=== PATIENT | female | born 1985 | race Caucasian/White ===

== ENCOUNTER 2018-11-30 19:20 | Inpatient (IN) ==
[2018-11-30 20:34] LABS: HEMATOCRIT 36.8 % (37.0-47.0); IMM GRAN# 0.03 X1000 (0.0-0.04); IMM GRAN% 0.3 % (0.0-0.5); LYMPH# 0.43 X1000 (1.2-3.4); LYMPH% 4.4 % (20.5-51.1); MCHC 32.6 g/dL (33-37); MCV 85.8 FL (81-99); MONO# 0.73 X1000 (0.11-0.59); MONO% 7.4 % (1.7-9.3); MPV 11.4 FL (7.4-10.4); NEUT# 8.65 X1000 (1.4-6.5); NEUT% 87.9 % (42.2-75.2); PLT 97 X1000 (130-400); RBC 4.29 XMIL (4.2-5.4); RDW 14.6 % (11.5-14.5); WBC 9.84 X1000 (4.8-10.8)
[2018-11-30 20:52] LABS: AGAP 15; ALB/GLOB RATIO 1.1; ALBUMIN 3.5 g/dL (3.5-5.0); ALKALINE PHOSPHATASE 50 U/L (32-104); BUN 14 mg/dL (8-22); CALCIUM 8.4 mg/dL (8.8-10.2); CHLORIDE 97 mmol/L (98-107); COSMO 269; CREATININE 0.9 mg/dL (0.5-0.9); ESTIMATED GFR > 60; GLUCOSE 129 mg/dL (70-104); GOT 25 U/L (10-30); GPT 27 U/L (10-36); LIPASE 12 U/L (13-60); POTASSIUM 3.2 mmol/L (3.5-5.1); SODIUM 133 mmol/L (136-145); TCO2 21 mmol/L (25-35); TOTAL BILIRUBIN 0.55 mg/dL (0.20-1.00); TOTAL PROTEIN 6.6 g/dL (6.3-8.3)
[2018-11-30] MEDS ORDERED: NS 1,000 ML IV ONE (21:22)
[2018-11-30] MEDS ORDERED: MORPHINE IV ONE (21:22)
[2018-11-30] MEDS ORDERED: ZOFRAN IM ONE (21:23)
[2018-11-30] MEDS ORDERED: ZOFRAN LIQUID PO ONE (21:23)
[2018-11-30 21:41] LABS: URINE SOURCE CLEAN CATCH
[2018-11-30] MEDS ORDERED: ZOFRAN IV ONE (21:50)
[2018-11-30 21:53] LABS: BILIRUBIN URINE NEGATIVE (NEGATIVE); BLOOD URINE MODERATE (NEGATIVE); COLOR ORANGE; GLUCOSE URINE NEGATIVE (NEGATIVE); KETONE URINE NEGATIVE (NEGATIVE); LEUKOCYTES URINE LARGE (NEGATIVE); NITRITE URINE POSITIVE (NEGATIVE); PH URINE 5.5; PROTEIN URINE 100 mg/dL (NEGATIVE); TURBIDITY URINE TURBID (CLEAR); UROBILINOGEN URINE NORMAL (NORMAL)
[2018-11-30 22:00] LABS: UR EPITHELIAL CELLS <10 /HPF (<10); URINE BACTERIA 4+ /HPF; URINE RBC <10 /HPF (<10); URINE WBC TNTC /HPF (<10)
[2018-11-30 22:10] LABS: URINE CASTS NONE SEEN; URINE CRYSTALS NONE SEEN; URINE SMALL ROUND CELLS NONE SEEN; URINE YEAST NONE SEEN
[2018-11-30] MEDS ORDERED: KLOR-CON POWDER PACKET PO ONE (22:24)
[2018-11-30] MEDS ORDERED: MAG-OX PO ONE (22:24)
--- NOTE | 2018-11-30 22:27 | Diag Imaging Result Doc PS360 ---
EXAM: CT ABD/PELVIS W/IV CONT ONLY HISTORY: RLQ POINT TENDERNESS AND ALSO RUQ PAIN; THANKS. TECHNIQUE: CT abdomen and pelvis with intravenous contrast COMPARISON: None. FINDINGS: There is fatty infiltration of the liver. No calcified gallstones or adjacent inflammation. Normal spleen, pancreas, and adrenal glands. Normal left kidney. No left-sided hydronephrosis. Irregular enhancement throughout the right kidney. Slight distention to the right ureter, but no stones. Normal aorta. Normal appendix. No abscess. No bowel obstruction. No ascites. The urinary bladder is moderately distended and is normal. Normal uterus and ovaries. No free fluid in the pelvis. IMPRESSION: Right-sided pyelonephritis. This exam was performed using automated exposure control, adjustment of mA or kV according to patient size, and/or use of iterative reconstruction technique. Electronically signed by Kp Kruse 11/30/2018 10:24 PM
[2018-11-30] MEDS ORDERED: LEVAQUIN 750 MG/D5W 750 MG/150 ML IVPB IV ONE (22:45)
[2018-11-30] MEDS ORDERED: TYLENOL PO ONE (22:54)
--- NOTE | 2018-11-30 22:58 | PROVIDER DOCUMENTATION ---
This chart was entered by Malia Bynum Scribe, acting as scribe for Amanda Joshi MD. HPI-Abdominal Pain/GI Problem - General Chief Complaint: Abdominal Pain Stated Complaint: (R) SIDE PAIN, FEELS WEAK Time Seen by Provider: 11/30/18 21:08 Source: patient Allergies/Adverse Reactions: Patient Allergies Allergy/AdvReac Type Severity Reaction Status Date / Time cefaclor [From Ceclor] Allergy HIVES Verified 11/30/18 21:26 ceftriaxone [From Rocephin] Allergy SWELLING Verified 11/30/18 21:26 Penicillins Allergy ANAPHYLAXIS Verified 11/30/18 21:26 Home Medications: Home Medication List Medication Instructions Recorded Confirmed Last Taken Type Ibuprofen 4 tab PO PRN PRN 11/30/18 11/30/18 11/30/18 History - History of Present Illness-ABD Nature of Presenting Problems: 32 yof presents w/co 3 days abd pain on right side. pt denies nvd, chills and dysuria. Abdominal Pain Onset Location: reports: RUQ, RLQ Pain Radiation: reports: no radiation Severity in ED: reports: mild Review of Systems - Adult - REVIEW OF SYSTEMS - ADULT Constitutional: reports: fever (pt temp in er is 101.4). denies: chills Eyes: reports: no symptoms reported Ears, Nose, Mouth & Throat: reports: no symptoms reported Cardiovascular: reports: no symptoms reported Respiratory: reports: no symptoms reported Gastrointestinal: reports: see HPI, abdominal pain (rlq, ruq tenderness). denies: diarrhea, nausea, vomiting Genitourinary: reports: no symptoms reported. denies: dysuria, flank pain, hematuria Musculoskeletal: reports: no symptoms reported Integumentary: reports: no symptoms reported Neurological: reports: no symptoms reported Psychiatric: reports: no symptoms reported Endocrine: reports: no symptoms reported Hematologic/Lymphatic: reports: no symptoms reported Allergic/Immunologic: reports: no symptoms reported All Other Systems: Reviewed and Negative Past History - Adult - PAST MEDICAL HISTORY-ADULT Review of Records: reports: Old Records Reviewed, Nursing Assessment Review, Medications Reviewed, Social history reviewed & non-contributory. Major Childhood Illnesses: reports: denies history Cardiovascular: reports: denies history Respiratory: reports: denies history Gastrointestinal: reports: denies history Obstetrical/Gynecological: reports: denies history Genitourinary: reports: denies history Musculoskeletal: reports: denies history Neurological: reports: denies history Endocrine/Immune: reports: denies history Other Conditions: reports: denies history - PRIOR SURGERIES/PROCEDURES Surgical/Procedure History: reports: none - IMMUNIZATION STATUS Childhood Immunizations: See Nurse Assessment Flu Vaccine: See Nurse Assessment - FAMILY HISTORY Family History: reviewed, not pertinent - SOCIAL HISTORY Smoking: cigarettes, less than 1 pack/day Provider spent 3-5 mins advising pt. on dangers of tobacco.: Discussed manners to quit use, and f/u contacts for add'l counseling. 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 negative: anxious, slow to respond, obtunded - EYES Eyes: PERRL/EOMI - HEAD, EARS, NOSE, MOUTH & THROAT HENMT: normocephalic/atraumatic, moist mucous membranes, normal ENT inspection - NECK Neck: non-tender, full range of motion, supple - RESPIRATORY Respiratory: chest non-tender, lungs clear, normal breath sounds - CARDIOVASCULAR Cardiovascular: normal peripheral pulses, tachycardia. negative: bradycardia, extra beats, friction rub - GASTROINTESTINAL (ABDOMEN) Abdominal Exam: normal bowel sounds, soft, tenderness (rlq, ruq), Rovsing's sign . negative: non tender, abdominal bruit, abnormal bowel sounds - LYMPHATIC Lymphatic: no adenopathy - MUSCULOSKELETAL Back Exam: normal inspection, no CVA tenderness, no vertebral tenderness Extremity: normal range of motion, non-tender, normal inspection Peripheral Pulses: radial (R): 2+, radial (L): 2+ - SKIN Integumentary: normal color, normal turgor, warm/dry - NEUROLOGIC Neurologic: electric range servicer II-XII nml as tested, grossly normal, no motor/sensory deficits - PSYCHIATRIC Psych/Mental Status: normal mood/affect, normal thought content, normal thought process, oriented x 3 Progress - PLAN OF CARE/RESULTS Progress/Plan/Lab Results: Vital Signs - 8 hr 11/30/18 19:28 11/30/18 21:56 Temperature 101.4 F H Pulse Rate 113 H 76 Respiratory Rate 14 23 Blood Pressure 114/65 97/56 O2 Sat by Pulse Oximetry 100 95 Bedside Urine ED: Urine Bedside Start: 11/30/18 19:32 Freq: ORDERED Status: Complete Protocol: Activity Type Activity Date Activity User E-Sign Co-Sign Detail Recorded Client Recorded Date Recorded By Document 11/30/18 19:54 [id number] 11/30/18 19:54 [id number] Edit Status 11/30/18 21:30 [id number] Active=>Complete [id number] 11/30/18 21:30 [id number] 11/30/18 19:54 Point of Care [Bedside Point of Care] -Lot # [id number] - Results Negative -Control Line Visible? Yes 11/30/18 19:47 Influenza Screen - Final Nasopharyngeal Laboratory Results - last 24 hr 11/30/18 11/30/18 11/30/18 19:47 19:47 19:49 WBC 9.84 RBC 4.29 Hgb 12.0 Hct 36.8 L MCV 85.8 MCH 28.0 MCHC 32.6 L RDW Std Deviation 14.6 H Plt Count 97 L MPV 11.4 H Immature Gran % (Auto) 0.3 Neut % (Auto) 87.9 H Lymph % (Auto) 4.4 L Falls % (Auto) 7.4 Eos % (Auto) 0.0 Baso % (Auto) 0.0 Immature Gran # (Auto) 0.03 Neut # (Auto) 8.65 H Lymph # (Auto) 0.43 L Falls # (Auto) 0.73 H Eos # (Auto) 0.00 Baso # (Auto) 0.00 Sodium 133 L Potassium 3.2 L Chloride 97 L Carbon Dioxide 21 L Anion Gap 15 BUN 14 Creatinine 0.9 Estimated GFR/1.73 m2 > 60 BUN/Creatinine Ratio 16 Glucose 129 H Calculated Osmolality 269 Calcium 8.4 L Total Bilirubin 0.55 AST 25 ALT 27 Alkaline Phosphatase 50 Total Protein 6.6 Albumin 3.5 Globulin 3.1 Albumin/Globulin Ratio 1.1 Lipase 12 L Urine Source CLEAN CATCH Urine Color ORANGE Urine Turbidity TURBID Urine pH 5.5 Ur Specific [place] 1.010 Urine Protein 100 A Ur Glucose (Stick) NEGATIVE Ur Ketones (Stick) NEGATIVE Urine Blood MODERATE A Urine Nitrite POSITIVE A Urine Bilirubin NEGATIVE Urobilinogen Dipstick NORMAL Urine Leukocytes LARGE A Urine Test 11/30/18 19:49 WBC RBC Hgb Hct MCV MCH MCHC RDW Std Deviation Plt Count MPV Immature Gran % (Auto) Neut % (Auto) Lymph % (Auto) Falls % (Auto) Eos % (Auto) Baso % (Auto) Immature Gran # (Auto) Neut # (Auto) Lymph # (Auto) Falls # (Auto) Eos # (Auto) Baso # (Auto) Sodium Potassium Chloride Carbon Dioxide Anion Gap BUN Creatinine Estimated GFR/1.73 m2 BUN/Creatinine Ratio Glucose Calculated Osmolality Calcium Total Bilirubin AST ALT Alkaline Phosphatase Total Protein Albumin Globulin Albumin/Globulin Ratio Lipase Urine Source Urine Color Urine Turbidity Urine pH Ur Specific [place] Urine Protein Ur Glucose (Stick) Ur Ketones (Stick) Urine Blood Urine Nitrite Urine Bilirubin Urobilinogen Dipstick Urine Leukocytes Urine Test NEGATIVE Orders Category Date Time Status ED: Urine Bedside ORDERED Care 11/30/18 19:32 Completed NPO Diet 11/30/18 19:[address] ABD/PELVIS W/IV CONT ONLY [CT] Stat Exams 11/30/18 21:23 Ordered CBC WITH DIFF [HEME] Stat Lab 11/30/18 19:47 Completed COMPREHENSIVE METABOLIC PANEL [CHEM] Stat Lab 11/30/18 19:47 Completed Flu Swab [INFLUENZA SCREEN A/B] Stat Lab 11/30/18 19:47 Completed LIPASE [CHEM] Stat Lab 11/30/18 19:47 Completed MAGNESIUM [CHEM] Stat Lab 11/30/18 19:47 Received TEST-URINE [PREG] Stat Lab 11/30/18 19:49 Completed URINALYSIS W/POSS RFLX CULT [URINALYSIS] Stat Lab 11/30/18 19:49 Results URINE MANUAL MICROSCOPIC [URINALYSIS] Stat Lab 11/30/18 19:49 Results 0.9% Sodium Chloride Inj [Ns] 1,000 ml Med 11/30/18 21:22 Active IV 999 mls/hr Morphine Med 11/30/18 21:22 Discontinued 4 mg IV NOW ONE Ondansetron [Zofran Liquid] Med 11/30/18 21:23 Discontinued 4 mg PO NOW ONE Ondansetron [Zofran] Med 11/30/18 21:23 Discontinued 4 mg IM NOW ONE Ondansetron [Zofran] Med 11/30/18 21:50 Discontinued 4 mg IV NOW ONE Abd Pain/OB <20 weeks Stat Oth 11/30/18 19:32 Ordered Result Diagrams: 11/30/18 19:47 11/30/18 19:47 - REASSESSMENT Reassessment #1 Time Reassessed: 22:53 Status: other (SPOKE TO HOSPITALIST FOR OBSERVATION FOR PYELONOEPHRITIS WELL HYPO MG/K. APPRECIATE HOSPITALIST ASSITANCE) - CT/MRI 1 CT Study: Abdomen ([facility] [address] , [address], [place] [address] Department of Imaging Patient: BEVERLY CAZARES Date: 11/30/18MR#: [id number] : 1985ADM Status: PRE ERAcct#: [id number] Age/Sex: 32/FRoom/Bed: Loc: ED Ordering Physician: Amanda Joshi MD Family Physician: None,PCP Reason for Procedure: RLQ POINT TENDERNESS AND ALSO RUQ PAIN; THANKS. ___ Signed EXAM: CT ABD/PELVIS W/IV CONT ONLY HISTORY: RLQ POINT TENDERNESS AND ALSO RUQ PAIN; THANKS. TECHNIQUE: CT abdomen and pelvis with intravenous contrast COMPARISON: None. FINDINGS: There is fatty infiltration of the liver. No calcified gallstones or adjacent inflammation. Normal spleen, pancreas, and adrenal glands. Normal left kidney. No left-sided hydronephrosis. Irregular enhancement throughout the right kidney. Slight distention to the right ureter, but no stones. Normal aorta. Normal appendix. No abscess. No bowel obstruction. No ascites. The urinary bladder is moderately distended and is normal. Normal uterus and ovaries. No free fluid in the pelvis. IMPRESSION: Right-sided pyelonephritis. This exam was performed using automated exposure control, adjustment of mA or kV according to patient size, and/or use of iterative reconstruction technique. Electronically signed by Kp Kruse 11/30/2018 10:24 PM 11/30/18 [id number] Interpreting Physician: Kp Kruse MD Dictated Date/Time: 11/30/18 2221 cc: Amanda Joshi MD; None,PCP) Departure - Departure Date of Disposition Decision: 11/30/18 Time of Disposition Decision: 22:57 DIAGNOSIS: Pyelonephritis, Hypomagnesemia, Hypokalemia Disposition: ADMITTED INPATIENT 09 Certified Medical Emergency: Emergent Condition: Fair Referrals and Follow-Ups: None,PCP [Primary Care Provider] - - Critical Care Note This patient required my direct & personal management of CC.: No Attestation - Physician/ GRETCHEN Attestation Patient care was provided by Advanced Practice Provider:: No The physician spent face to face time with patient:: Yes Advanced Practice Provider documentation review:: Supervising physician onsite and consulted in the evaluation and care of this patient. The physician did have a face to face encounter with the patient. This chart was documented by the indicated scribe, (Malia Bynum Scribe) and accurately reflects the services I performed and decisions made by me, Chidi Joshi MD, as attested by the provider's signature.
[2018-11-30] MEDS ORDERED: TYLENOL PO PRN (23:07)
[2018-11-30] MEDS ORDERED: NORCO-7.5 PO PRN (23:07)
[2018-11-30] MEDS ORDERED: MORPHINE IV PRN (23:11)
--- NOTE | 2018-12-01 00:05 | HISTORY AND PHYSICAL ---
PRIMARY CARE PHYSICIAN: None. PRESENTING COMPLAINT: Right-sided abdominal pain for 3 days. HISTORY OF PRESENT COMPLAINT: Ms. Berry is a 32-year-old female with no known chronic medical illness. She came to the emergency department because of 3-day history of right flank acute-onset abdominal pain, which was about 6/10 initially, radiating to the back. Ms. Berry refers that she took some [id number] pain medication, but there was no real improvement. The pain continued to get worse and it was associated with nauseation, low appetite, chills and fever. She did not take her temperature at home but when she presented to the emergency department, it was 101.4 degrees. The patient was evaluated in the ER. Imaging studies revealed a right-side pyelonephritis. We have been consulted for admission and medical management. PAST MEDICAL HISTORY: Unremarkable. ALLERGIES: Cefaclor and ceftriaxone will cause breakout. Penicillins will make her stop breathing. SOCIAL HISTORY: The patient smokes about half a pack a day of cigarettes for the past 20 years. Denies alcohol. Used to use recreational drugs before, but according to her she is not on any anymore. She is currently living at a care home home. FAMILY HISTORY: Positive for diabetes and hypertension. SURGICAL HISTORY: Unremarkable. REVIEW OF SYSTEMS: A 14-point review of systems conducted with Ms. Berry, positive for what we have in the HPI. Specifically, Ms. Berry denies any chest pain or shortness of breath. She is not coughing. No diarrhea. She, however, also refers to be positive for urinary frequency and burning on urination. The patient's last menses was about a week ago. She is still spotting some intermittent bleeding. test is negative. PHYSICAL EXAMINATION: VITAL SIGNS: Blood pressure on presentation was 114/65, pulse was 113, respiration was 14, temperature was 101.4 degrees. GENERAL: Ms. Berry is a 32-year-old female, obese. BMI is 34.3. She is in bed. No distress. HEENT: Mucosa is pink and moist. Anicteric. Acyanotic. Head is normocephalic and atraumatic. NECK: Supple. There is no JVD. RESPIRATORY SYSTEM: There is good air entry bilaterally. No crepitations. No rhonchi. There is no accessory muscle use. CARDIOVASCULAR: Regular rate and rhythm. No murmurs, no rubs, no gallops. GASTROINTESTINAL: Abdomen is soft. Minimally tender in the right flank as well as with CVA tenderness. There is no hepatosplenomegaly. Bowel sounds are present. EXTREMITIES: No pedal edema. Distal pulses are present. PEAT SHREDDER TENDER: The patient is awake, alert, oriented. There is no focal neurological deficit. Cranial nerves 2-12 have been grossly examined and they are unremarkable. Motor is 5/5 in all extremities. Sensation is intact. PSYCHIATRIC: The patient is very cooperative and has good insight and judgment. SKIN: There are multiple tattoos. LABORATORY DATA: WBC is 9.84, hemoglobin is 12.0 platelet count of 97,000. Chemistry is also reviewed. Sodium is 133, potassium is 3.2, bicarbonate is 21, magnesium is 1.2. test is negative. Urine is positive for nitrite, leukocyte esterase is large, WBCs too numerous to count. DIAGNOSTIC DATA: CT abdomen and pelvis shows a right-side pyelonephritis. ASSESSMENT AND PLAN: Ms. Berry presented with a 3-day history of right flank pain associated with nausea, vomiting and fever. Imaging studies have revealed right-side pyelonephritis. Urine is also remarkably abnormal. 1. Sepsis on presentation secondary to right-sided pyelonephritis. Cultures have been done. The patient has been given first dose of levofloxacin. She is allergic to penicillins and cephalosporins, so we will avoid these. We will continue with the levofloxacin until we have the culture report out. 2. Right-side pyelonephritis. Awaiting the bacteriology. 3. Obesity, with body mass index of 34.2. Weight management advised. 4. Active tobacco use. Cessation has also been advised. In general, Ms. Berry is going to be admitted to the medical floor. We are going to continue adequate hydration. Her vital signs are fairly stable. We will continue with the IV antibiotics and wait for the blood cultures as well as the urine culture. The patient is currently on levofloxacin. Depending on the culture result, we will make changes as needed. I have explained the plan to Ms. Berry, and she voiced understanding. cc: Dewey Olvera MD
[2018-12-01 06:39] LABS: HEMATOCRIT 35.9 % (37.0-47.0); HEMOGLOBIN 11.6 g/dL (12.0-16.0); IMM GRAN# 0.02 X1000 (0.0-0.04); IMM GRAN% 0.2 % (0.0-0.5); LYMPH# 0.45 X1000 (1.2-3.4); LYMPH% 5.4 % (20.5-51.1); MCH 27.9 PG (27-31); MCHC 32.3 g/dL (33-37); MCV 86.3 FL (81-99); MONO# 0.49 X1000 (0.11-0.59); MONO% 5.9 % (1.7-9.3); MPV 10.9 FL (7.4-10.4); NEUT# 7.31 X1000 (1.4-6.5); NEUT% 88.5 % (42.2-75.2); PLT 89 X1000 (130-400); RBC 4.16 XMIL (4.2-5.4); RDW 14.6 % (11.5-14.5); WBC 8.27 X1000 (4.8-10.8)
[2018-12-01 06:45] LABS: AGAP 10; ALB/GLOB RATIO 1.2; ALBUMIN 3.5 g/dL (3.5-5.0); ALKALINE PHOSPHATASE 51 U/L (32-104); BUN 13 mg/dL (8-22); CALCIUM 7.9 mg/dL (8.8-10.2); CHLORIDE 103 mmol/L (98-107); COSMO 277; CREATININE 0.8 mg/dL (0.5-0.9); ESTIMATED GFR > 60; GLUCOSE 120 mg/dL (70-104); GOT 22 U/L (10-30); GPT 26 U/L (10-36); POTASSIUM 4.1 mmol/L (3.5-5.1); SODIUM 138 mmol/L (136-145); TCO2 25 mmol/L (25-35); TOTAL BILIRUBIN 0.44 mg/dL (0.20-1.00); TOTAL PROTEIN 6.5 g/dL (6.3-8.3)
[2018-12-01 07:18] LABS: BANDS 2 % (0-1); LYMPHS 8 % (21-51); SEGS 90 % (42-75)
[2018-12-01] MEDS: ZOFRAN IV PRN ×3 (07:57→19:58)
[2018-12-01] MEDS ORDERED: MERREM 1 GM in NS 50 ML IV SCH (13:45)
--- NOTE | 2018-12-01 14:10 | PROGRESS NOTE ---
DATE: 12/05/2018 SUBJECTIVE: The patient reports still complaining of right-sided abdominal pain in the right flank. Denies any nausea vomiting. OBJECTIVE: Vital Signs: Temperature 98.3 degrees, heart rate 80 respiratory rate 20, blood pressure 110/64, O2 saturation 100% on room air. General: This is a 32-year-old female lying in bed, in no acute distress. Cardiovascular: S1, S2 heard. No murmurs, gallops, or rubs. Regular rate and rhythm. Respiratory: Clear bilaterally to auscultation. No work of breathing or using accessory muscles. Abdomen: Soft, nontender to palpation. Bowel sounds present. No organomegaly. There is CVA tenderness noted clearly in the right side. Mild suprapubic tenderness noted also. Neurological: Patient alert oriented x3. Moves 4 extremities. LABORATORY DATA: 1. White cell count 8.37, hemoglobin 11.6, hematocrit 35.9, normal BMP. 2. Urine culture showed gram-negative rods. 3. Also blood cultures showed gram-negative growth as well. ASSESSMENT AND PLAN: 1. Sepsis secondary to right-sided pyelonephritis. Blood culture and urine culture shows gram- negative rods. At this time levofloxacin has been stopped and we have started Azactam 2 grams IV every 8 hours. We are going to consult Dr. Alvarenga from Infectious Disease to help us in the management of this patient. She is clinically still complaining of right-sided flank pain. So, we will optimize her pain medication. 2. Active tobacco abuser. The patient advised to stop smoking. 3. Obesity with body mass index of 34.2, aware. DISPOSITION: We will continue monitoring this patient closely. We will follow recommendations from Dr. Alvarenga. cc: Jonnie Wood MD
[2018-12-01] MEDS: OFIRMEV 1000 MG/ISOTONIC SOLN 1,000 MG/100 ML BOTTLE IV SCH ×2 (14:31→23:34)
[2018-12-01] MEDS: PROTONIX IV SCH (14:31)
[2018-12-01] MEDS: TORADOL IV SCH ×2 (14:31→19:58)
[2018-12-01] MEDS: MORPHINE IV PRN ×2 (14:45→19:58)
[2018-12-01] MEDS: NS 1,000 ML IV SCH (14:52)
[2018-12-01] MEDS ORDERED: COLACE PO PRN (16:46)
[2018-12-01] MEDS: AZACTAM 2 GM in NS 100 ML IV SCH (16:58)
[2018-12-01] MEDS: COLACE PO SCH (17:30)
[2018-12-01] MEDS: MIRALAX PO SCH (17:30)
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
[2018-12-01] MEDS ORDERED: MIRALAX PO SCH (21:00)
[2018-12-01] MEDS ORDERED: LEVAQUIN 500 MG/D5W 500 MG/100 ML IVPB IV SCH (22:00)
[2018-12-02] MEDS: MORPHINE IV PRN ×4 (00:30→23:31)
[2018-12-02] MEDS: ZOFRAN IV PRN ×2 (00:31→06:07)
[2018-12-02] MEDS: AZACTAM 2 GM in NS 100 ML IV SCH ×3 (00:35→18:36)
[2018-12-02] MEDS: COLACE PO SCH ×3 (02:40→23:30)
[2018-12-02] MEDS: MIRALAX PO SCH ×2 (02:41→12:53)
[2018-12-02] MEDS: TORADOL IV SCH ×5 (02:58→23:31)
[2018-12-02] MEDS: NS 1,000 ML IV SCH ×5 (02:59→16:21)
[2018-12-02] MEDS: OFIRMEV 1000 MG/ISOTONIC SOLN 1,000 MG/100 ML BOTTLE IV SCH ×5 (04:06→23:31)
[2018-12-02 05:59] LABS: EOS# 0.03 X1000 (0.0-0.7); EOS% 0.7 % (0.0-10.0); HEMATOCRIT 32.9 % (37.0-47.0); HEMOGLOBIN 10.1 g/dL (12.0-16.0); LYMPH# 0.71 X1000 (1.2-3.4); MCH 27.2 PG (27-31); MCHC 30.7 g/dL (33-37); MCV 88.7 FL (81-99); MPV 11.2 FL (7.4-10.4); NEUT% 74.3 % (42.2-75.2); PLT 87 X1000 (130-400); RBC 3.71 XMIL (4.2-5.4); RDW 14.7 % (11.5-14.5); WBC 4.44 X1000 (4.8-10.8)
[2018-12-02 06:25] LABS: AGAP 6; BUN 11 mg/dL (8-22); CALCIUM 8.3 mg/dL (8.8-10.2); CHLORIDE 104 mmol/L (98-107); COSMO 277; CREATININE 0.8 mg/dL (0.5-0.9); ESTIMATED GFR > 60; GLUCOSE 96 mg/dL (70-104); POTASSIUM 3.8 mmol/L (3.5-5.1); SODIUM 139 mmol/L (136-145); TCO2 29 mmol/L (25-35)
[2018-12-02] MEDS ORDERED: PHENERGAN IV ONE (08:45)
[2018-12-02] MEDS ORDERED: SODIUM CHLORIDE 0.9% INJ ONE (08:45)
[2018-12-02] MEDS ORDERED: SODIUM CHLORIDE 0.9% INJ PRN (10:18)
--- NOTE | 2018-12-02 12:15 | PROGRESS NOTE ---
DATE: 12/02/2018 SUBJECTIVE: This patient is still complaining of right-sided abdominal pain, right flank. She is still having nausea and vomiting. I will stop the Zofran and I will put her on Phenergan. She is bacteremic and urine culture showed Escherichia coli. Infectious Disease is on board. OBJECTIVE: Vital Signs: Temperature 98.1 degrees, pulse 71 respiratory rate 22, blood pressure 109/58, oxygen saturation 100% on room air. HEENT: Head normocephalic, no trauma. PERRLA. Neck: Supple. No JVD. No masses. Central trachea. Chest: Clear to auscultation. No wheezing. No rales. Abdomen: Soft, tender to palpation at the level of the right flank and costovertebral angle. Extremities: No edema. No clubbing. No cyanosis. Neurological: The patient is alert and oriented x3. No focal deficits. LABORATORY: WBC 4.4, hemoglobin 10.1, hematocrit 32.9, platelets 87,000. Sodium 139, potassium 3.8, chloride 104, bicarbonate 29, BUN 11, creatinine 0.8, glucose 96, calcium 8.8. ASSESSMENT AND PLAN: 1. Sepsis secondary to pyelonephritis/bacteremia. Blood culture showed gram-negative rods and urine culture showed Escherichia coli. Infectious Disease department following this patient. She has been placed on aztreonam. She is still having pain, nausea and vomiting but no fever for the past 24 hours reported. 2. Active tobacco use. This patient has been advised against tobacco use. I will continue with daily cessation education. 3. Obesity with a body mass index of 34.2, aware. cc: Jerry Gibbs MD
[2018-12-02] MEDS: PROTONIX IV SCH ×2 (16:27→17:42)
[2018-12-02] MEDS: SODIUM CHLORIDE 0.9% INJ SCH ×2 (17:42→23:30)
[2018-12-02] MEDS: PHENERGAN IV PRN ×2 (17:43→23:29)
[2018-12-03] MEDS: MIRALAX PO SCH ×3 (00:45→21:56)
[2018-12-03] MEDS: TORADOL IV SCH ×4 (01:44→21:56)
[2018-12-03] MEDS: AZACTAM 2 GM in NS 100 ML IV SCH ×2 (01:44→10:42)
[2018-12-03] MEDS: OFIRMEV 1000 MG/ISOTONIC SOLN 1,000 MG/100 ML BOTTLE IV SCH ×5 (04:45→21:54)
[2018-12-03] MEDS: NS 1,000 ML IV SCH ×3 (04:45→21:54)
[2018-12-03 05:58] LABS: EOS# 0.01 X1000 (0.0-0.7); EOS% 0.3 % (0.0-10.0); HEMOGLOBIN 9.4 g/dL (12.0-16.0); LYMPH# 0.83 X1000 (1.2-3.4); LYMPH% 25.8 % (20.5-51.1); MCH 26.8 PG (27-31); MCHC 30.3 g/dL (33-37); MCV 88.3 FL (81-99); MONO% 12.4 % (1.7-9.3); MPV 10.8 FL (7.4-10.4); NEUT# 1.98 X1000 (1.4-6.5); NEUT% 61.5 % (42.2-75.2); PLT 103 X1000 (130-400); RBC 3.51 XMIL (4.2-5.4); RDW 14.6 % (11.5-14.5); WBC 3.22 X1000 (4.8-10.8)
[2018-12-03 06:27] LABS: AGAP 10; BUN 9 mg/dL (8-22); CALCIUM 8.1 mg/dL (8.8-10.2); CHLORIDE 107 mmol/L (98-107); COSMO 280; CREATININE 0.7 mg/dL (0.5-0.9); ESTIMATED GFR > 60; GLUCOSE 99 mg/dL (70-104); POTASSIUM 3.8 mmol/L (3.5-5.1); SODIUM 141 mmol/L (136-145); TCO2 24 mmol/L (25-35)
[2018-12-03] MEDS: COLACE PO SCH ×2 (08:06→21:56)
--- NOTE | 2018-12-03 13:02 | INFECTIOUS DISEASE PROGRESS NO ---
DATE: 12/03/2018 PRESENT ILLNESS: The patient has a right Escherichia coli pyelonephritis with an associated bacteremia. On the CT scan, there is ureteral distention. ALLERGIES: The patient has allergies to cephalosporin and antibiotics and penicillins. MEDICATIONS: The patient currently is on aztreonam. PHYSICAL EXAMINATION: Vital Signs: Temperature is 97.9 degrees, pulse 60, respirations 18, blood pressure 95/45. General: This is an obese, young female. She has been having a fair amount of pain in the right flank area, but she told me today that it is getting better. HEENT: She can hear my spoken words and see near objects. There is no white coating to her tongue. Neck: No stiffness. Lungs: Clear to auscultation. Cardiovascular: Regular heart rate. Abdomen and Flanks: There was no tenderness in the right side of the abdomen or the right CVA area. Neurologic: The patient is alert. She can move her extremities. There is no tremor. IMAGING AND LABORATORY DATA: As mentioned above, the patient's CT scan did show right pyelonephritis with ureteral distention. The blood culture is growing Escherichia coli and bacillus species. The urine is growing Escherichia coli also. The CBC shows a white count of 3220, hemoglobin 9.4, and platelet count 103,000. Creatinine is 0.7. GFR is greater than 60. ASSESSMENT AND PLAN: The patient has an Escherichia coli pyelonephritis with associated bacteremia. There is a question of whether there is ureteral distention. The patient has drug allergy to cephalosporin and penicillin antibiotics. The patient's organism is susceptible to Levaquin, and I am going to switch her to that. The patient still has a little bit of nausea, so I am going to give it intravenous. Some of the side effects of the antibiotic, including rash, diarrhea, seizures, and tendon rupture have been explained to the patient, who agrees with treatment. I have put in a consult for Dr. Fragoso to evaluate the patient's possible right ureteral distention. The patient's positive blood culture for bacillus is a contaminant and does not merit giving antibiotic therapy for it. COMORBIDITIES: Really, there are none, other than the fact that she is obese. cc: Vinay Alvarenga MD
--- NOTE | 2018-12-03 13:32 | PROGRESS NOTE ---
DATE: 12/03/2018 SUBJECTIVE: Patient is still complaining of some nausea and back pain, mostly right flank pain. We will continue with antibiotics, which have been changed by Infectious Disease Department. We have a positive blood culture and urine culture that showed Escherichia coli sensitive to levofloxacin. There is slight distention to the right ureter, but no stones. Urology Department has been consulted to evaluate this patient. For now, we will continue with the same management. OBJECTIVE: Vitals: Temperature 97.9 degrees, pulse 60, respiratory rate 18, blood pressure 95/45. Oxygen saturation 97% on room air. HEENT: Head normocephalic. No trauma. PERRLA. Neck: Supple. No JVD. No masses. Central trachea. Chest: Clear to auscultation. No wheezing. No rales. Abdomen: CVA tenderness. Soft, tender to palpation at the level of the right flank. Extremities: No edema. No clubbing. No cyanosis. Neurological: The patient is alert and oriented x3. No focal deficits. LABORATORY: WBC 3.2, hemoglobin 9.4, hematocrit 31, platelets 103,000. Sodium 141, potassium 3.8, chloride 107, bicarbonate 24, BUN 9, creatinine 0.7, glucose 99, calcium 8.1. ASSESSMENT AND PLAN: 1. Sepsis, secondary to pyelonephritis/bacteremia. Blood culture and urine culture showed E. Coli sensitive to levofloxacin. Infectious Disease Department already evaluated this patient. They have stopped aztreonam and put this patient on levofloxacin. She is still in pain, having nausea, but no fever. Urology Department has been consulted to evaluate this patient due to slight dilation of the ureter. 2. Active tobacco use. This patient has been advised against tobacco use. I will continue with daily cessation education. 3. History of drug abuse. As per the patient, that was a long time ago. No issues at this moment. 4. Obesity with a body max index of 34.2, aware. Diet and exercise have been discussed. cc: Jerry Gibbs MD
[2018-12-03] MEDS: LEVAQUIN 500 MG/D5W 500 MG/100 ML IVPB IV SCH (14:00)
[2018-12-03] MEDS: SODIUM CHLORIDE 0.9% INJ SCH (14:03)
[2018-12-03] MEDS: PROTONIX IV SCH (14:03)
[2018-12-03] MEDS: MORPHINE IV PRN (22:44)
[2018-12-03] MEDS: PHENERGAN IV PRN (22:45)
[2018-12-04] MEDS: TORADOL IV SCH ×4 (03:04→13:09)
[2018-12-04] MEDS: OFIRMEV 1000 MG/ISOTONIC SOLN 1,000 MG/100 ML BOTTLE IV SCH ×3 (04:36→10:03)
[2018-12-04 06:38] LABS: BASO# 0.01 X1000 (0.0-0.2); BASO% 0.3 % (0.0-0.8); EOS# 0.02 X1000 (0.0-0.7); EOS% 0.6 % (0.0-10.0); HEMATOCRIT 32.9 % (37.0-47.0); HEMOGLOBIN 10.1 g/dL (12.0-16.0); LYMPH# 0.65 X1000 (1.2-3.4); LYMPH% 19.1 % (20.5-51.1); MCH 27.4 PG (27-31); MCHC 30.7 g/dL (33-37); MCV 89.2 FL (81-99); MONO# 0.31 X1000 (0.11-0.59); MONO% 9.1 % (1.7-9.3); MPV 11.1 FL (7.4-10.4); NEUT# 2.41 X1000 (1.4-6.5); NEUT% 70.9 % (42.2-75.2); PLT 135 X1000 (130-400); RBC 3.69 XMIL (4.2-5.4); RDW 14.8 % (11.5-14.5)
[2018-12-04 07:07] LABS: AGAP 9; ALBUMIN 2.9 g/dL (3.5-5.0); ALKALINE PHOSPHATASE 80 U/L (32-104); BUN 9 mg/dL (8-22); CALCIUM 8.1 mg/dL (8.8-10.2); CHLORIDE 110 mmol/L (98-107); COSMO 284; CREATININE 0.7 mg/dL (0.5-0.9); ESTIMATED GFR > 60; GLUCOSE 97 mg/dL (70-104); GOT 18 U/L (10-30); GPT 23 U/L (10-36); MAGNESIUM 1.9 mg/dL (1.5-2.7); SODIUM 143 mmol/L (136-145); TCO2 24 mmol/L (25-35); TOTAL BILIRUBIN 0.15 mg/dL (0.20-1.00); TOTAL PROTEIN 5.7 g/dL (6.3-8.3)
--- NOTE | 2018-12-04 07:37 | CONSULTATION ---
DATE OF CONSULTATION: 12/04/2018 CHIEF COMPLAINT: Right flank pain and right ureteral dilation. HISTORY OF PRESENT ILLNESS: Ms. Berry is a 32-year-old female who presented to the emergency room on 11/30/2018, complaining of a 3-day history of right flank pain and abdominal pain. This initially started out at 6/10, and significantly increased. She denied having any fevers or chills. However, on arrival, she had a temperature of 101.4 degrees. She had some burning with urination as well as nausea and decreased appetite. The patient had a CT abdomen and pelvis performed, which showed evidence of right pyelonephritis with right ureteral dilation. The patient was admitted and started on IV antibiotics. The patient's white blood cell count at that time was 9.8 with a creatinine of 0.9. The patient's labs have remained stable with a creatinine of 0.7 yesterday and a white blood cell count of 3.2. On evaluation this morning, the patient states that her pain is better controlled. She denies any nausea or vomiting. The patient has been afebrile for over 48 hours now. The patient states she is tolerating a diet without issue. She denies seeing a urologist previously. Denies prior history of urinary tract infections or kidney stones. PAST MEDICAL HISTORY: No pertinent past medical history. PAST SURGICAL HISTORY: Denies past surgeries. ALLERGIES: Penicillin, which made her stop breathing; Ceftin and ceftriaxone, which caused a breakout. HOME MEDICATIONS: Denies home medication. FAMILY HISTORY: Denies family history of malignancy or kidney stone. SOCIAL HISTORY: The patient smokes half a pack of cigarettes a day for approximately 20 years now. Denies alcohol or current use of recreational drugs. REVIEW OF SYSTEMS: A 12-point review of systems was performed with all pertinent positives and negatives in the HPI. PHYSICAL EXAMINATION: Vital Signs: Temperature 98.5 degrees, heart rate 57, blood pressure 103/58, oxygen saturation 100% on room air. General: No acute distress. Resting comfortably in bed. Alert and oriented x3. HEENT: Normocephalic, atraumatic. Pupils equal, round, reactive to light. Mucous membranes moist. Neck: Trachea midline. Respiratory: Good respiratory effort without audible wheezing or rales. Cardiovascular: Regular rate and rhythm. No murmurs, rubs, or gallops. GI: Abdomen is soft, nontender, nondistended. No palpable hepatosplenomegaly. : No CVA tenderness. No suprapubic tenderness. Extremities: Moving all extremities without issue. MANAGER OF HOUSEKEEPING: Gross motor and sensory intact. Alert and oriented x3. Skin: No obvious skin lesions or rashes. IMAGING AND LABORATORY DATA: White blood cell count 3.4, hemoglobin 10.1, hematocrit 32.9, platelets 135,000. Chemistry from yesterday showed a sodium of 141, potassium 3.8, chloride 107, bicarb 24, BUN 9, creatinine 0.7, glucose 99. CT on 11/30/2018, imaging reviewed, which showed right-sided pyelonephritis with ureteral dilation. No obvious obstructing lesions. More likely ureteral edema rather than true dilation. No evidence of any kidney stones, renal masses, or hydronephrosis. PLAN: Ms. Berry is a 32-year-old with history of tobacco use and no other pertinent past medical history, who presents in evaluation for right pyelonephritis and right ureteral dilation. The patient presented on 11/30/[address] scan, which showed ureteral dilation with no evidence of hydronephrosis. The patient had evidence of pyelonephritis on the CT scan, and has been treated with IV antibiotics. Her blood cultures were positive. She also had urine cultures growing Enterococcus that were relatively sensitive. She does have allergies, but is currently on Levaquin. Reviewed with her, her CT scan today, which does show ureteral dilation versus ureteral edema. Overall, I think this is likely related to her infection, leading to thickening of the ureter and decreased peristalsis. Overall, I do not think this is really causing her pain, and she also states that her pain has been getting better. She denies any nausea or vomiting, is tolerating a diet. All her labs appear to be within normal limits. I recommended continued IV antibiotics and monitoring. Will plan to repeat an ultrasound in the office. The patient states that she is not sure if she would want to follow up with doctors after this hospitalization. I told her that I would recommend regular followup, especially if she begins having more urinary tract infections or worsening flank pain. The patient expressed understanding. Will continue to monitor. Please call with questions or concerns. cc: Alexis Fragoso MD [facility]
[2018-12-04] MEDS: NS 1,000 ML IV SCH ×2 (07:42→18:29)
[2018-12-04] MEDS: MIRALAX PO SCH ×2 (08:47→20:40)
[2018-12-04] MEDS: COLACE PO SCH ×2 (08:47→20:40)
[2018-12-04] MEDS: LEVAQUIN 500 MG/D5W 500 MG/100 ML IVPB IV SCH ×2 (13:08→16:22)
[2018-12-04] MEDS: PROTONIX IV SCH (13:09)
[2018-12-04] MEDS: SODIUM CHLORIDE 0.9% INJ SCH (13:09)
--- NOTE | 2018-12-04 13:13 | PROGRESS NOTE ---
DATE: 12/04/2018 SUBJECTIVE: This patient seems to be feeling better. She is still complaining of pain. The blood culture from yesterday has been negative so far. We will continue with the same management. Urology Department evaluated this patient yesterday. The plan is to follow her up as an outpatient but no changes at this moment. Continue with fluids and antibiotics. OBJECTIVE: Vital Signs: Temperature 99 degrees, pulse 69, respiratory rate 18, blood pressure 113/63, oxygen saturation 98% on room air. HEENT: Head normocephalic. No trauma. PERRLA. Neck: Supple. No JVD. No masses. Central trachea. Chest: Clear to auscultation. No wheezing. No rales. Abdomen: Costovertebral angle tenderness. Tender to palpation at the level of the right flank as well. Extremities: No edema. No clubbing. No cyanosis. Neurological: The patient is alert and oriented x3. No focal deficits. LABORATORY: WBC 3.4, hemoglobin 10.1, hematocrit 32.3 platelets 135,000 143, potassium 4, chloride 110 bicarbonate 24, BUN 9, creatinine 0.7, glucose 97, calcium 8.1. ASSESSMENT AND PLAN: 1. Sepsis secondary to pyelonephritis/bacteremia. Blood culture and urine culture showed E-coli sensitive to levofloxacin. We will continue with the same management. We ordered a new blood culture from yesterday that has been negative so far. 2. Active tobacco use. This patient has been advised against tobacco use. I will continue with daily cessation education. 3. History of drug abuse. As per the patient she was doing drugs a long time ago, no issues at this moment. 4. Obesity with a body mass index of 34, aware, diet and exercise has been discussed. cc: Jerry Gibbs MD
--- NOTE | 2018-12-04 15:30 | INFECTIOUS DISEASE PROGRESS NO ---
DATE: 12/04/2018 PRESENT ILLNESS: The patient has an E coli pyelonephritis with an associated bacteremia. On CT scan, there is a ureteral distention. MEDICATIONS: The patient has been receiving Levaquin intravenously. PHYSICAL EXAMINATION: Vital Signs: Temperature is 99 degrees, pulse 69, respirations 18, blood pressure 113/63. General: This is an obese, young female. She has been having much less pain. She does not look to be in any acute distress. Head/eyes/ears/nose/throat: She can hear my spoken words and see near objects. There was no white patches on her tongue. Lungs: Clear to auscultation. Cardiovascular: Heart rate is regular. Abdomen/Flanks: Soft and not tender. Neurologic: Patient is alert. She can move her extremities. There is no tremor. LAB AND RADIOLOGY: The patient's CBC shows a white count of 3400, hemoglobin 10.1 and platelet count 135,000. Creatinine is 0.7 GFR is greater than 60. Repeat blood cultures are pending. Thus far repeat blood cultures are sterile. ASSESSMENT AND PLAN: The patient has Escherichia coli bacteremia and urinary tract infection. She is on Levaquin. I am making the Levaquin p.o. and tomorrow if her blood cultures are negative at 48 hours the patient will be discharged. She will be following up in my office and also she will be following up with Dr. Fragoso. COMORBIDITIES: I did not find any other than the fact that she is obese. cc: Vinay Alvarenga MD
[2018-12-04] MEDS: TYLENOL PO SCH ×2 (16:22→20:40)
[2018-12-04] MEDS: TORADOL PO SCH (18:30)
[2018-12-05] MEDS: TORADOL PO SCH ×3 (01:23→15:43)
[2018-12-05] MEDS: TYLENOL PO SCH ×3 (01:23→09:40)
[2018-12-05] MEDS: NS 1,000 ML IV SCH (04:32)
[2018-12-05] MEDS ORDERED: PROTONIX PO SCH (07:00)
[2018-12-05] MEDS: COLACE PO SCH (09:40)
[2018-12-05] MEDS: MIRALAX PO SCH (09:40)
[2018-12-05] MEDS ORDERED: LEVAQUIN PO SCH (12:00)
--- NOTE | 2018-12-05 13:24 | INFECTIOUS DISEASE PROGRESS NO ---
DATE: 12/05/2018 The patient has a right pyelonephritis. She is being discharged today on Levaquin 500 mg daily for 2 weeks. I have given the patient appointment to come to my office in [address] Fragoso is going to be following the patient because of involvement of her ureter. cc: Vinay Alvarenga MD
[2018-12-05 13:47] VITALS: BP 105/60
--- NOTE | 2018-12-05 15:49 | DISCHARGE SUMMARY ---
ADMISSION DATE: 12/01/2018 DISCHARGE DATE: 12/05/2018 ADMISSION DIAGNOSIS: 1. Sepsis on presentation. 2. Right-sided pyelonephritis. 3. Obesity. 4. Nicotine dependence. DISCHARGE DIAGNOSIS: 1. Sepsis resolved. 2. Right-sided pyelonephritis. 3. Obesity. 4. Nicotine dependence. CONSULTATIONS: Vinay Alvarenga MD with ID and Alexis Fragoso MD with Urology. DIAGNOSTIC PROCEDURES AND FINDINGS: Abdomen and pelvis CT on 11/30/2018 shows right-sided pyelonephritis. HOSPITAL COURSE: Ms. Berry is a 32-year-old female with a history of morbid obesity and nicotine dependence, who presented to the ER with a 3 day history of right flank acute onset abdominal pain radiating to her back. This was associated with nausea, chills, fever, and decreased appetite. When she arrived to the ER for evaluation, she had a fever of 101.4 with clear urinary tract infection and tachycardia giving her criteria for sepsis. A CT of the abdomen and pelvis confirmed right-sided pyelonephritis, she was admitted for further treatment and evaluation. Blood cultures were obtained and grew out gram-negative rods as did her urine culture. She was started on Azactam given her cephalosporin and penicillin allergy, once she had gram-negative bacteremia we consulted Infectious Disease, who switched her to Levaquin based on sensitivity. CT did show some right-sided ureteral distention. Based on that, Dr. Alvarenga did consult Dr. Fragoso with Urology, who felt that this was more inflammatory than any true obstructive process. He recommended that she follow up in the office for another ultrasound. She improved with IV fluids and antibiotics. We did consumer credit counselor her daily on nicotine cessation as well as weight reduction techniques including exercise and diet given her morbid obesity. We did consult Social Work for possible assistance with medications, as she lacks resources per her report. Overall, she is now stable for discharge. DISCHARGE MEDICATIONS: Ibuprofen 800 mg p.o. as needed, Levaquin 500 mg p.o. daily for 14 days, MiraLAX 17 g p.o. b.i.d. DISCHARGE DIET: Heart healthy. DISCHARGE ACTIVITY: Resume activity as tolerated. DISCHARGE LAB DATA: WBC 3.4, hemoglobin 10.1, hematocrit 32.9, platelet count 135. Sodium 143, potassium 4.0, chloride 110, CO2 24, anion gap 9, BUN 9, creatinine 0.7, glucose is 97, calcium 8.1, magnesium 1.9. LFTs negative. Albumin 2.9. Repeat blood cultures negative. DISPOSITION AND OTHER DISCHARGE INSTRUCTIONS: The patient is discharged home to self-care. She is to follow up with Dr. Alvarenga and Dr. Fragoso as directed. We will attempt an association with Social Work and Case Management to assist her with medications. She is to return to the ER or call 911 for any worsening complaints or concerns. We have counseled her extensively on nicotine cessation and directed her toward [id number] nicotine patches if needed. All questions answered. Dictated by SINDHU Madison for Jerry Gibbs MD cc: SINDHU Madison MD Leroy F. Harris, MD Patrick Guthrie, MD
== END 2018-12-05 16:33 | disposition home or self-care (01) | DRG 872 ==
LOC: ED 19:20 → SUATTDRO 12-01 00:06 → 4N 12-01 00:06
PROVIDERS: ATTEND Internal Medicine
CPT/HCPCS: 74177; 80048; 80053; 81001; 81025; 83690; 83735; 84443; 85025; 87040; 87077; 87088; 87186; 87275; 87276; 87804; 96361; 96365; 96366; 96375; 99285; A9270; C9113; J0131; J1885; J1956; J2270; J2405; J2550; J7030; Q9967; S0073; S0164